=== PATIENT | female | born 1980 | race Caucasian/White ===

== ENCOUNTER → 2021-11-15 | Outpatient (CLI) | payer OTHER ==
[~2021-11-15] MED LIST: FLEXERIL 10 MG10 MG PO; KLONOPIN TAB 00.5 MG PO; LINZESS145 MCG PO; MACROBID 100 M100 MG PO; MIRALAX 119 GR119 GM PO; NEURONTIN 300300 MG PO; NORCO 5-325 TA1 EACH PO; OMEPRAZOLE10 MG PO; PERCOCET 10-321 EACH PO; PREVACID30 MG PO; PYRIDIUM100 MG PO; SINGULAIR10 MG PO; ZOFRAN4 MG PO; ZYRTEC10 MG PO
== END ==
LOC: RAD 15:35
DX: J32.9 Chronic sinusitis, unspecified (principal); R05.9 Cough, unspecified; L92.0 Granuloma annulare
CPT/HCPCS: 71046